=== PATIENT | female | born 1980 | race Two or more races ===

== ENCOUNTER 2020-12-08 20:33 | Emergency (ER) | payer BC ==
[~2020-12-08] VITALS: Ht 162.6 cm; Wt 71.8 kg
[2020-12-08 20:36] VITALS: BP 118/61
--- NOTE | 2020-12-08 20:54 | NUR ---
PT AMBULATED TO ROOM. PT IS HERE FOR A PRESCRIPTIONS REFILL.
--- NOTE | 2020-12-08 21:11 | NUR ---
PT GIVEN PRESCRIPTIONS AND F/U AND D/C INSTRUCTIONS AND SHE V/U. PT AMBULATED TO DISCHARGE DESK.
== END 2020-12-08 21:22 | disposition home or self-care (01) ==
LOC: ED 21:11
DX: F32.9 Major depressive disorder, single episode, unspecified (principal); Z76.0 Encounter for issue of repeat prescription
CPT/HCPCS: 99281

== ENCOUNTER 2020-12-11 09:18 | Emergency (ER) | payer BC ==
[~2020-12-11] VITALS: Ht 172.7 cm; Wt 65.0 kg
[2020-12-11 09:32] VITALS: BP 124/74
[2020-12-11] MEDS ORDERED: VENL150C PO (09:42)
[2020-12-11] MEDS ORDERED: PRAZ1CAP2 PO (09:42)
[2020-12-11] MEDS ORDERED: OLAN5TAB7 PO (09:42)
--- NOTE | 2020-12-11 09:48 | NUR ---
URINE COLLECTED AND WALKED TO LAB
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
--- NOTE | 2020-12-11 09:52 | NUR ---
PT REPORT DOING METH 2 DAYS AGO, NOTIFIED
[2020-12-11] MEDS ORDERED: HALOPERIDOL 5 MG/ML ONE (10:11)
[2020-12-11 10:14] LABS: BASOPHILS % (AUTO) 0 % (0-1); EOSINOPHILS % (AUTO) 0 % (1-7); LYMPHOCYTES % (AUTO) 9 % (22-44); MEAN CORPUSCULAR HEMOGLOBIN 26.5 pg (27.0-34.8); MEAN CORPUSCULAR HGB CONC 33.5 g/dL (32.4-35.8); MEAN PLATELET VOLUME 7.3 fL (7.4-10.4); MONOCYTES % (AUTO) 7 % (2-9); NEUTROPHILS % (AUTO) 84 % (42-75); PLATELET COUNT 347 x10^3/uL (130-400); RED BLOOD COUNT 4.26 x10^6/uL (3.82-5.3); RED CELL DISTRIBUTION WIDTH 17.7 % (9.6-15.2)
[2020-12-11 10:16] LABS: ALANINE AMINOTRANSFERASE 42 U/L (12-78); ALBUMIN 3.8 g/dL (3.4-5.0); ANION GAP 8 mmol/L (5-15); CALCIUM 8.6 mg/dL (8.5-10.1); CHLORIDE 107 mmol/L (98-107); SALICYLATE LEVEL 3.3 mg/dL (2.8-20.0)
[2020-12-11 10:21] LABS: ALKALINE PHOSPHATASE 137 U/L (45-117); BILIRUBIN,TOTAL 0.6 mg/dL (0.2-1.0); CREATININE 0.79 mg/dL (0.55-1.02); TOTAL PROTEIN 7.8 g/dL (6.4-8.2)
[2020-12-11] MEDS ORDERED: HALOPERIDOL 5 MG/ML IM ONE (10:30)
--- NOTE | 2020-12-11 10:36 | NUR ---
PT AGRESSIVE (SLAMING DOORS SPINNING IN BED) FOR SW/SALVAGE LABORER PUT IN 4 POINT RESTRAINTS AT 1015, PT TAKEN OUT AT 1022 PER VERBAL CONTACT FOR SAFETY.
[2020-12-11 11:28] LABS: AMPHETAMINE SCREEN, URINE Positive (Negative); BARBITURATE SCREEN, URINE Negative (Negative); BENZODIAZEPINE SCREEN, URINE Negative (Negative); CANNABINOID SCREEN, URINE Positive (Negative); COCAINE SCREEN, URINE Negative (Negative); METHADONE SCREEN, URINE Negative (Negative); OPIATE SCREEN, URINE Negative (Negative)
--- NOTE | 2020-12-11 12:54 | NUR ---
PT SLEEPING, RR EVEN AND UNLABORED, NAD. ROOM IS SAFE A SECURE, ED SITTER OUTSIDE ROOM.
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
--- NOTE | 2020-12-11 15:15 | NUR ---
MEDICATED PER EMAR FOR CONTINUED AGITATION
--- NOTE | 2020-12-11 17:24 | NUR ---
silva cooley from [facility] called to accept and take report on Ms. Aguilera. Report provided
--- NOTE | 2020-12-11 17:50 | NUR ---
Patient now calm/oriented/pleaseant. Updated on pending transfer to [facility]. Provided with dinner
--- NOTE | 2020-12-11 19:09 | NUR ---
Discharged via [facility] to [facility] All belongings transferred with patient
== END 2020-12-11 10:00 | disposition home or self-care (01) ==
LOC: ED 09:29 → EDIP 11:45 → UNDOADMOB 11:45
DX: R45.851 Suicidal ideations (principal); F15.122 Other stimulant abuse with intoxication with perceptual disturbance; F15.121 Other stimulant abuse with intoxication delirium; F15.14 Other stimulant abuse with stimulant-induced mood disorder; F41.1 Generalized anxiety disorder; F32.9 Major depressive disorder, single episode, unspecified; F17.200 Nicotine dependence, unspecified, uncomplicated
CPT/HCPCS: 36415; 80053; 80299; 80307; 80320; 84703; 85025; 96372; 99285; J1630; 80329; G0480